=== PATIENT | male | born 2000 | race Caucasian/White ===

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

== ENCOUNTER 2022-03-28 16:27 | Emergency (ER) | payer BC, OTHER ==
[~2022-03-28] VITALS: Ht 185.4 cm; Wt 122.5 kg
[~2022-03-28 16:27] MED LIST changes: +CEFP200 PO; +Flagyl500 MG PO
[2022-03-28 17:31] LABS: BASOPHILS ABSOLUTE AUTO 0.07 K/mm3 (0.00-0.23); BASOPHILS PERCENT AUTO 1 % (0-2); EOSINOPHILS ABSOLUTE AUTO 0.14 K/mm3 (0.00-0.68); EOSINOPHILS PERCENT AUTO 2 % (0-6); Hematocrit 39.8 % (37.0-53.0); Hemoglobin 14.3 g/dL (13.5-17.5); IMMATURE GRAN ABSOLUTE AUTO 0.01 K/mm3 (0.00-0.10); IMMATURE GRAN PERCENT AUTO 0 % (0-1); LYMPHOCYTES ABSOLUTE AUTO 4.18 K/mm3 (0.84-5.20); LYMPHOCYTES PERCENT AUTO 51 % (21-46); MONOCYTES ABSOLUTE AUTO 0.73 K/mm3 (0.16-1.47); MONOCYTES PERCENT AUTO 9 % (4-13); Mean Corpuscular HGB 29.6 pg (26.0-34.0); Mean Corpuscular HGB Conc 35.9 g/dL (31.5-36.5); Mean Corpuscular Volume 82 fL (80-100); Mean Platelet Volume 9.9 fL (9.1-12.4); NEUTROPHILS ABSOLUTE AUTO 3.09 K/mm3 (1.96-9.15); NEUTROPHILS PERCENT AUTO 38 % (41-73); Platelet Count 259 K/mm3 (150-400); RDW Coefficient Variation 12.4 % (11.7-14.2); RDW Standard Deviation 37.6 fL (35.1-46.3); Red Blood Cell Count 4.83 M/mm3 (4.30-5.90); White Blood Cell Count 8.22 K/mm3 (4.00-11.30)
[2022-03-28 18:03] LABS: Albumin, Blood 4.1 g/dL (3.4-5.0); Albumin/Globulin Ratio 1.4 (0.8-1.8); Bilirubin, Total 1.3 mg/dL (0.1-1.0); Bun/Creatinine Ratio 14.5 (12.0-20.0); Calcium, Blood 8.8 mg/dL (8.5-10.1); Creatinine, Blood 0.69 mg/dL (0.60-1.20); Globulin, Blood 2.9 g/dL (2.2-4.0); Potassium, Blood 2.7 mmol/L (3.5-5.5)
[2022-03-28] MEDS ORDERED: POTCHL20ER PO (20:51)
== END 2022-03-28 21:15 | disposition home or self-care (01) ==
LOC: ER 16:27
PROVIDERS: Student in an Organized Health Care Education/Training Program
DX: R55 Syncope and collapse (principal); E87.6 Hypokalemia
CPT/HCPCS: 36415; 80053; 85025; 93005; 93010; 99284-25; A9270

== ENCOUNTER 2023-09-27 18:42 | Emergency (ER) | payer BC, OTHER ==
[~2023-09-27] VITALS: Ht 185.4 cm; Wt 108.9 kg
[~2023-09-27 18:42] MED LIST changes: +POTCHL20ER PO
[2023-09-27 18:58] VITALS: BP 117/87
[2023-09-27] MEDS ORDERED: Acetaminophen 325 MG TABLET PO ONE (19:40)
== END 2023-09-27 19:41 | disposition home or self-care (01) ==
LOC: ER 18:42
DX: G43.909 Migraine, unspecified, not intractable, without status migrainosus (principal); F17.200 Nicotine dependence, unspecified, uncomplicated
CPT/HCPCS: 99284; A9270

== ENCOUNTER 2023-10-12 16:38 | Emergency (ER) | payer OTHER, BC ==
[~2023-10-12] VITALS: Ht 188 cm; Wt 106.6 kg
[2023-10-12 16:58] VITALS: BP 117/92
[2023-10-12] MEDS ORDERED: Tetanus and Diphtheria Toxoid 0.5 ML INJ IM ONE (17:00)
== END 2023-10-12 17:49 | disposition home or self-care (01) ==
LOC: ER 16:38
DX: S61.002A Unspecified open wound of left thumb without damage to nail, initial encounter (principal); W26.0XXA Contact with knife, initial encounter; Y99.0 Civilian activity done for income or pay; G43.909 Migraine, unspecified, not intractable, without status migrainosus; Z87.891 Personal history of nicotine dependence
CPT/HCPCS: 12001; 90471; 90714; 99282-25

== ENCOUNTER 2024-01-30 06:21 | Emergency (ER) | payer BC, OTHER ==
[~2024-01-30] VITALS: Ht 185.4 cm; Wt 99.8 kg
[2024-01-30] MEDS ORDERED: Ketorolac Tromethamine 30mg Vial IM ONE (07:30)
[2024-01-30] MEDS ORDERED: Acetaminophen 500 MG Tab PO ONE (08:10)
[2024-01-30] MEDS ORDERED: Ibuprofen 600 MG Tab PO ONE (08:10)
[2024-01-30] MEDS ORDERED: Morphine Sulfate IR 15 MG Tab PO ONE (08:15)
[2024-01-30] MEDS ORDERED: Morphine Sulfat15 MG PO (08:21)
[2024-01-30] MEDS ORDERED: AMOX875 PO (08:21)
[2024-01-30] MEDS ORDERED: IBUP600 PO (08:21)
[2024-01-30 08:39] VITALS: BP 125/84
== END 2024-01-30 08:41 ==
LOC: ER 06:21
DX: K02.9 Dental caries, unspecified (principal); G43.909 Migraine, unspecified, not intractable, without status migrainosus; Z87.891 Personal history of nicotine dependence
CPT/HCPCS: 99282; A9270; J1885